=== PATIENT | female | born 1950 | race Caucasian/White ===

== ENCOUNTER → 2024-07-17 | Outpatient (CLI) | payer MEDICARE, BC, SELFPAY ==
--- NOTE | 2024-02-15 13:39 | PC.NURSE ---
Spoke to patient to [facility] on upcoming appointment for MRI with sedation on Sunday at 1300. As per patient, she wants to cancel appointment and re-schedule for a different date. [employer] Inspector called and made aware
[2024-05-30 14:21] VITALS: BMI 26.6
--- NOTE | 2024-05-30 14:52 | PC.NURSE ---
patient states she is wheezing at this time, covid test ordered for sunday06/02/24, educated patient that if symptoms worsen, call to reschedule procedure
[2024-07-16 12:00] VITALS: BMI 26.6
[2024-07-17] VITALS (9 sets, daily range): BP systolic 107–146; BP diastolic 63–83; PULSE 100–119; RESP 16–20; TEMP 36–36.8; O2SAT 92–98
--- NOTE | 2024-07-17 13:00 | XR_ITS ---
Examination: MRI lumbar spine without contrast Date and time of exam: July 17, 2024 1351 hours Comparison April 02, 2020 INDICATIONS: Lower back pain radiating down both legs numbness in the legs 30 years worse the last year Technique: Multiple MRI axial and sagittal sections lumbar spine. Sagittal T2-weighted images, TR 3500, TE 118 T1 weighted transverse sections, TR 688 T8.5, T2-weighted sagittal sections T1 weighted sagittal sections TR 621, TE 30 T2 axial sections, TR 4, 190, TE 84. Findings: Adequate alignment lumbar vertebral bodies No lumbar fracture Diffuse lumbar disc desiccation No spondylolisthesis L5-S1 5 mm central right paracentral subarticular disc bulge displacing the right S1 nerve root L4-L5 4 mm right paracentral subarticular disc bulge L3-L4 3 mm central lumbar disc bulge L2-L3 no disc protrusion L1-2 no disc protrusion IMPRESSION: L5-S1 5 mm central right paracentral disc bulge displacing the right S1 nerve root L4-L5 4 mm right paracentral subarticular disc bulge L3-L4 3 mm central lumbar disc bulge
[2024-07-17] MEDS: MIDAZOLAM INJ 1 MG/ML VIAL 2 ML 1.5 MG IV (13:51)
[2024-07-17] MEDS: SODIUM CHLORIDE 0.9% 500 ML 500 ML 20 ML IV (13:51)
== END | disposition home or self-care (01) ==
PROVIDERS: PCP Internal Medicine; Referring Provider Psychiatry & Neurology Neurology; Visit Provider Psychiatry & Neurology Neurology
DX: M51.369 Other intervertebral disc degeneration, lumbar region without mention of lumbar back pain or lower extremity pain (principal); M51.379 Other intervertebral disc degeneration, lumbosacral region without mention of lumbar back pain or lower extremity pain
CPT/HCPCS: 72148; 99152; J2250; J7040